=== PATIENT | female | born 1960 | race Hispanic/Latino ===

== ENCOUNTER 2016-04-01 17:50 | Emergency (ER) | payer SELFPAY ==
[2016-04-01 17:57] VITALS: BP 121/73; PULSE 102; RESP 16; O2SAT 98
--- NOTE | 2016-04-01 18:36 | ED.REPORT ---
HPI-General Illness Date of Service Apr 01, 2016 ED Provider: Mega Veliz DO 56-year-old female past medical history of diabetes, chronic right foot pain secondary to work injury 2 years ago and headaches presents to ED via POV, patient is reportedly dropped off and left in the ED waiting room. Patient is [place]-speaking only possibly different dialect as promotions associate services have had trouble communicating with patient. Through promotions associate patient's main complaint today is a head pain and ringing in her ears. This is accompanied with a whooshing sound in both ears which coincides with her heartbeat, patient denies dizziness or a sensation that the room is spinning denies nausea vomiting , diarrhea GI or , CP, SOB, abdominal pain. Does endorse fever and chills and generalized malaise. Nursing Notes Stated Complaint: R FOOT Chief Complaint: Extremity Trauma Nursing Notes Reviewed: Yes Allergies: Coded Allergies: No Known Allergies (Unverified , 04/01/16) Scheduled Amoxicillin/Clav K 875-125 mg (Augmentin 875-125 mg) 1 Each Tablet 1 TABLET PO BID Oseltamivir Phosphate (Tamiflu) 75 Mg Capsule 75 MG PO BID General Time Seen by MD: 18:19 Chief Complaint Headache Hx Obtained From: Patient, Daughter Arrived By: Walk-in Review of Systems Full Review of Systems Constitutional: Reports: Chills, Fever Eyes: Denies: Blurred bilateral, Diplopia, Photophobia, Redness bilateral, Visual loss bilateral Ears / Nose / Throat: Reports: Ear ringing bilateral, Hearing loss bilateral, Denies: Ear drainage bilateral, Mouth pain, Nasal congestion, Nose bleeding, Sinus problem, Sore throat Respiratory: Denies: Hemoptysis, Non-productive cough, Pleuritic pain, Shortness of breath, Wheezing Cardiovascular: Denies: Chest pain GI: Reports: Abdominal pain, Denies: Constipation, Diarrhea, Nausea, Vomiting Musculoskeletal: Denies: Back pain Hematologic: Denies Bleeding Neurologic: Reports: Headache, Denies: Abnormal movement, Bladder dysfunction, Bowel dysfunction, Change LOC , Confusion, Dizziness, Focal weakness, Lightheaded, Numbness, Spinning sensation, Vision change, Weakness Physical Exam General: Mild distress, well-developed, well-nourished, appropriately interactive HEENT: Normocephalic, atraumatic. External ears without defect. Tympanic membranes visualized, mild erythema internal auditory meatus right side. Pupils equal, round, and reactive to light and accommodation. Anicteric sclerae slight injection bilaterally, moist conjunctivae, and no lid lag. Oropharynx free of erythema and cobble stoning with moist mucosa. Neck: Supple with full range of motion. No jugular venous distension. No bruits. No lymphadenopathy or thyromegaly. (Reevaluation of patient showed neck tenderness to flexion) Cardiovascular: Regular rate and rhythm with no murmurs, rubs, or gallops appreciated Pulmonary: Clear to auscultation bilaterally with no crackles, wheezes, or rhonchi. Normal respiratory effort with no use of accessory muscles. Abdomen: Bowel tones present. Soft, mild tenderness to palpation left and right lower quadrants, nondistended. No hepatosplenomegaly or masses appreciated. Extremities: No clubbing, cyanosis, edema, or lymphadenopathy appreciated, right foot in walking boot. Upon removal area is warm and painful to palpation no obvious infectious source. Skin: Normal temperature, turgor, and texture; no rash, ulcers, or subcutaneous nodules appreciated. Neurological: Cranial nerves grossly intact. Normal muscle strength, tone, and bulk. Reflexes, coordination, and sensory function within normal limits. Antalgic gait walks with cane Psychiatric: Normal mood and affect. Alert and oriented to person, place, and time. Vital Signs Vital Signs Date Time Temp Pulse Resp B/P Pulse Ox O2 Delivery O2 Flow Rate FiO2 04/02/16 01:54 37.4 98 18 96 04/01/16 21:33 38.6 102 16 121/73 98 108/68 04/01/16 17:57 38.6 102 16 121/73 98 Initial VS: Reviewed Interpretation & Diagnostics CT BRAIN WITHOUT CONTRAST IMPRESSION: 1. No acute intracranial disease process. 2. Mucosal thickening involving the left sphenoid sinus and posterior left ethmoid air cells with diffuse osseous wall thickening. Findings most compatible with severe chronic sinusitis. Please correlate with clinical data. Dictated by: Olivia Oliveira MD, PhD on 04/01/2016 at 20:15 X-RAY CHEST ONE VIEW, PORTABLE IMPRESSION: No acute cardiopulmonary disease process. Dictated by: Olivia Oliveira MD, PhD on 04/01/2016 at 20:53 Lab Results Interpretation Result Diagram: 04/01/169 04/01/161928 Test 04/01/16 19:29 04/01/16 20:25 04/01/16 22:55 White Blood Count 4.6th/mm3 (3.8-10.1) Red Blood Count 4.10mil/mm3 (3.90-5.20) Hemoglobin 12.2g/dL (12.0-15.6) Hematocrit 35.8% (35.0-46.0) Mean Corpuscular Volume 87.3fL (81-100) Mean Corpuscular Hemoglobin 29.8pg (27.0-35.0) Mean Corpuscular Hemoglobin Concent 34.1% (32.0-37.0) Red Cell Distribution Width 13.1% (12.3-15.4) Platelet Count 156bil/L (150-400) Neutrophils (%) (Auto) 73.4% (40-74) Lymphocytes (%) (Auto) 19.2% (14-46) Monocytes (%) (Auto) 6.8% (4-12) Eosinophils (%) (Auto) 0.4% (0-5) Basophils (%) (Auto) 0% (0-3) Sodium Level 137mEq/L (134-144) Potassium Level 3.5mEq/L (3.5-5.2) Chloride Level 99mEq/L (97-108) Carbon Dioxide Level 26mmol/L (18-29) Blood Urea Nitrogen 10mg/dL (6-24) Creatinine 0.43mg/dL (0.57-1.00) Estimat Glomerular Filtration Rate 218mL/min (>59) Glucose Level 163mg/dL (60-99) Calcium Level 8.8mg/dL (8.5-10.1) Magnesium Level 1.9mg/dL (1.6-2.6) Total Bilirubin 0.2mg/dL (0.0-1.2) Aspartate Amino Transf (AST/SGOT) 20U/L (0-50) Alanine Aminotransferase (ALT/SGPT) 11U/L (0-32) Alkaline Phosphatase 79U/L (25-150) Total Protein 7.1g/dL (6.4-8.4) Albumin 3.8g/dL (3.4-5.0) Lipase 24U/L (13-60) Hold Lowery Top Tube Received (Received) Urine Color Yellow (YELLOW) Urine Appearance Clear (CLEAR,HAZY) Urine pH 7.5 (5.0-8.0) Urine Specific Hamel 1.015 (1.003-1.035) Urine Protein Negativemg/dL (NEG,TRACE) Urine Glucose (UA) 500mg/dL (NEGATIVE) Urine Ketones Negativemg/dL (NEGATIVE) Urine Occult Blood Moderate (NEGATIVE) Urine Nitrite Negative (NEGATIVE) Urine Bilirubin Negative (NEGATIVE) Urine Urobilinogen Normalmg/dL (NORMAL) Urine Leukocyte Esterase Trace (NEGATIVE) Urine RBC 3-10/hpf (0-2) Urine WBC 6-10/hpf (0-5) Urine Epithelial Cells Moderate/hpf (NONE-MOD) Urine Crystals Amorphous phosphates Urine Bacteria Few/hpf (NONE-FEW) Urine Hyaline Casts None/lpf (NONE) Urine Granular Casts None seen (NONE SEEN) Urine Waxy Casts None seen (NONE SEEN) Urine Red Blood Cell Casts None seen (NONE SEEN) Urine White Blood Cell Casts None seen (NONE SEEN) Urine Mucus None seen (None Seen) Urine Trichomonas None seen (NONE SEEN) Urine Yeast None (NONE SEEN) Urinalysis Comment None Urine Culture Reflexed Indicated CSF Appearance Clear (CLEAR) CSF Color Colorless (COLORLESS) CSF WBC 8/mm3 (0-5) CSF RBC 45/mm3 CSF Mononuclear WBCs 100% CSF Polynuclear WBCs 0% CSF Other Cells 0 CSF Glucose 104mg/dL (45-90) CSF Total Protein 31mg/dL (15-45) Procedures Lumbar Puncture Procedure Performed by: ED physician, ED resident Consent / Setup / Site Prep: Consent from spouse Skin Preparation Agent: Betadine Local Anesthesia: Lidocaine 1% Inserted Needle at: L3 L4 Post-Procedure / Complications: Dressing applied, No complications, Tolerated procedure well Re-Eval/Medical Decision Med Decision/Clinical Course CBC CMP unremarkable. Temperature 38.6, pulse rate 102 blood pressure 121/73 respirations 16 at 98% Urine showed 6-10 white blood cells trace leukocyte esterase. No CVA tenderness , mild abdominal pain. Patient is a diabetic with a high blood glucose as well as glucosuria, no additional antibiotics prescribed based on recent recommendations. On reevaluation of patient she did endorse neck tenderness specifically to flexion. LP performed which showed 8 WBCs (reference 0-5) and CSF glucose of 104 (reference 45-90). As patient had a positive flu swab there was concern for viral meningitis. Patient given Tamiflu in ED as well as prescription. CT noncontrast showed chronic sinusitis, chest x-ray showed no cardiopulmonary disease. Patient discharged to home with pain medication, Tamiflu and Augmentin with strict instructions on when and why to return to emergency department. , Discharge & Departure Shift Change Sign-Out Response to Therapy: Improved Primary Impression: Sinusitis chronic, ethmoidal Additional Impressions: Sinusitis chronic, sphenoidal Flu Disposition: Home Discharge Condition All VS Reviewed: Yes Condition: Stable Additional Instructions: The head pain and other symptoms you are experiencing are most likely due to a chronic infection in your sinuses. This was seen on CT imaging of your head. Your flu test came back positive and there was some concern that this flu virus may have caused a condition called meningitis. The lumbar puncture done in the emergency room final results are still pending though we have have given you a medication called Tamiflu for this. We will be giving you a prescription to fill as well. I am giving you a prescription for an antibiotic called Augmentin. Please take this medication as prescribed. 1 tablet every 12 hours for the next 7 days. Please follow up with your primary care provider regarding today's emergency department visit. If you develop any worsening of your symptoms, significant fever greater than 102F, chest pain, significant shortness of breath, nausea/vomiting or visual disturbances please return to the emergency department for additional evaluation. Translation used with [employer] translate Referrals: NOPCP (PCP) Attending Statement I personally took a history and physical examination. I was present during the lumbar puncture. The lumbar puncture went very well. Meningitis ruled out. Influenza A is consistent with all of her symptoms. She also has sinusitis that is rather impressive on CT. She will be placed on Tamiflu, Augmentin as well as symptomatic treatment. Recommend close outpatient follow-up. CHRISTIANO WRIGHT DO Apr 01, 2016 18:36 Mega Veliz DO Apr 02, 2016 17:42
[2016-04-01 20:07] LABS: BASOPHILS % (AUTO) 0 % (0-3); EOSINOPHILS % (AUTO) 0.4 % (0-5); MONOCYTES % (AUTO) 6.8 % (4-12); Mean Corpuscular Hemoglobin 29.8 pg (27.0-35.0); Mean Corpuscular Volume 87.3 fL (81-100); NEUTROPHILS % (AUTO) 73.4 % (40-74); Platelet Count 156 bil/L (150-400)
[2016-04-01 20:10] LABS: Magnesium 1.9 mg/dL (1.6-2.6)
--- NOTE | 2016-04-01 20:17 | DRSVH ---
PROCEDURE: CT BRAIN WITHOUT CONTRAST ([id number]) INDICATIONS: DINH TECHNIQUE: Noncontrast 4.5 mm thick angled axial sections acquired from the foramen magnum to the vertex, with c oronal reformats. COMPARISON: None. FINDINGS: Image quality: Excellent. CSF spaces: Basal cisterns are patent. No extra-axial fluid collections. Ventricles are normal in size and shape. Brain: No midline shift. No intracranial masses or hemorrhage. Levi-white matter interface is norm al. Skull and face: Calvarium and visualized facial bones are intact, without suspicious lesions. Sinuses: Mucosal thickening causing complete opacification of the left sphenoid sinus is noted. Opa cification of posterior left ethmoid air cells noted. There is diffuse osseous thickening involving the left sphenoid sinus wall. D. mastoids are clear. IMPRESSION: 1. No acute intracranial disease process. 2. Mucosal thickening involving the left sphenoid sinus and posterior left ethmoid air cells with di ffuse osseous wall thickening. Findings most compatible with severe chronic sinusitis. Please corre late with clinical data. Dictated by: Olivia Oliveira MD, PhD on 04/01/2016 at 20:15 Approved by: Olivia Oliveira MD, PhD on 04/01/2016 at 20:15
[2016-04-01] MEDS ORDERED: Amoxicillin-Clav 875-125 mg Tablet PO ONE (20:35)
[2016-04-01] MEDS ORDERED: AMOX-366 PO (20:36)
[2016-04-01 20:46] LABS: APPEARANCE,URINE CLEAR (CLEAR,HAZY); COLOR,URINE YELLOW (YELLOW); OCCULT BLOOD,URINE MODERATE (NEGATIVE); PH,URINE 7.5 (5.0-8.0); UROBILINOGEN,URINE NORMAL (NORMAL)
--- NOTE | 2016-04-01 20:55 | DRSVH ---
PROCEDURE: X-RAY CHEST ONE VIEW, PORTABLE ([id number]) INDICATIONS: SHORTNESS OF BREATH TECHNIQUE: One view of the chest was acquired. COMPARISON: [facility], , CHEST 2VW, 10/02/2014, 17:46. FINDINGS: Surgical changes and devices: None. Lungs and pleura: No pleural effusions or pneumothorax. Lungs are clear. Mediastinum: Mediastinal contours appear normal. Heart size is normal. Bones and chest wall: No suspicious bony lesions. Overlying soft tissues appear unremarkable. IMPRESSION: No acute cardiopulmonary disease process. Dictated by: Olivia Oliveira MD, PhD on 04/01/2016 at 20:53 Approved by: Olivia Oliveira MD, PhD on 04/01/2016 at 20:53
[2016-04-01 21:33] VITALS: BP_SYST 108; BP_SYST 121; BP_DIAS 68; BP_DIAS 73; PULSE 102; RESP 16; O2SAT 98
[2016-04-01] MEDS ORDERED: HYDROcodone-APAP 5-325 mg Tablet PO ONE (22:35)
[2016-04-01] MEDS ORDERED: _HYDROcodone/APAP 5-325 mg Tablet PO PRN ×2 (22:35→23:20)
[2016-04-01] MEDS ORDERED: Ondansetron 8 mg ODT Tablet ONE (23:27)
[2016-04-01] MEDS ORDERED: Ondansetron 8 mg ODT Tablet PO ONE (23:40)
[2016-04-02] MEDS ORDERED: TAM75UDCAP PO (00:30)
[2016-04-02] MEDS ORDERED: AMOX-366 PO (00:31)
[2016-04-02 00:35] LABS: APPEARANCE,CSF CLEAR (CLEAR); COLOR,CSF COLORLESS (COLORLESS); WHITE BLOOD CELL,CSF 8 /mm3 (0-5)
[2016-04-02 01:54] VITALS: PULSE 98; RESP 18; O2SAT 96
== END 2016-04-02 01:58 | disposition home or self-care (01) ==
LOC: SED 18:00
DX: J32.2 Chronic ethmoidal sinusitis (principal); J32.3 Chronic sphenoidal sinusitis; J11.89 Influenza due to unidentified influenza virus with other manifestations; B97.89 Other viral agents as the cause of diseases classified elsewhere

== ENCOUNTER 2016-04-17 09:05 | Emergency (ER) | payer SELFPAY ==
[~2016-04-17] VITALS: Ht 129.5 cm; Wt 46.4 kg
[~2016-04-17 09:05] MED LIST: AMOX-366 PO; TAM75UDCAP PO
[2016-04-17 09:15] VITALS: BP 124/73; PULSE 61; RESP 14; O2SAT 99
--- NOTE | 2016-04-17 09:28 | ED.REPORT ---
HPI-Abd Pain F 40 and Over Date of Service Apr 17, 2016 ED Provider: Jhon Dougherty MD This is a 56-year-old indigenous Stateless woman who is accompanied by her . She reports many different symptoms and when I ask about one thing she commonly will respond with a complaint in a different body system. As best I can piece together, she has been sick for about 3 or 4 weeks. She says originally her main problem was right neck pain which has largely resolved. She says currently she experiences significant right-sided headache, mucus productive cough that is sometimes bloody she also endorses midepigastric and left lower quadrant pain intermittently. She endorses nausea but no vomiting. She says also that she is coughing quite a bit. She says that she is not sure whether she had a fever or not but she did have chills. She also points to her lower left back and says that she has pain there is sometimes. Her explains that she has chronic foot pain making it difficult to walk. She was seen and treated for influenza a on April 02. Her and are translating from [employer] into [place] therefore Afghan is not completely fluent making communication difficult. Nursing Notes Stated Complaint: GENERAL COMPLAINT Chief Complaint: Female Abdominal Pain Nursing Notes Reviewed: Yes Allergies: Coded Allergies: No Known Allergies (Unverified , 04/01/16) Scheduled Amoxicillin/Clav K 875-125 mg (Augmentin 875-125 mg) 1 Each Tablet 1 TABLET PO BID Oseltamivir Phosphate (Tamiflu) 75 Mg Capsule 75 MG PO BID Scheduled PRN Metoclopramide (Metoclopramide) 10 Mg Tablet 10 MG PO QID PRN PRN For Nausea General Time Seen by MD: 09:27 Chief Complaint Abdominal pain Hx Obtained From: Patient, Spouse Arrived By: Walk-in Sudden in Onset?: Yes Onset Occurred: More than a week ago... (2 weeks) Recent Healthcare: Recent doctor visit Past Medical History Past Medical History Non-specific foot injury that impedes walking Reports: Diabetes mellitus, Hypertension, Denies: Cancer Ambulatory Status Cane Review of Systems Constitutional: Reports: Chills Respiratory: Reports: Prod cough, bloody Cardiovascular: Reports: Chest pain GI: Reports: Abdominal pain, Nausea, Denies: Diarrhea, Vomiting Musculoskeletal: Reports: Back pain, Neck pain Complete sys rev & neg: except as marked. Ears / Nose / Throat: Reports: Earache right, Sore throat Neurologic: Reports: Dizziness, Headache, Lightheaded Physical Exam This woman appears well and is in no distress. She appears depressed and has a very flat affect. Her objective examination is entirely normal except for her antalgic gait which is attributed by her to her chronic foot problems and is not new. Vital Signs Vital Signs (First) Date Time Temp Pulse Resp B/P Pulse Ox O2 Delivery O2 Flow Rate FiO2 04/17/16 09:15 36.2 61 14 124/73 99 Room Air Initial VS: Reviewed Head / Eyes: Atraumatic, Normocephalic Skin: Warm, Dry Neurologic: Alert, Oriented, Nonfocal Psychiatric: Mood/affect normal, Behavior normal, Normal thought content General/Constitutional: Awake, Alert, Well developed Respiratory / Chest: Atraumatic, Breath sounds NL, Breath sounds = bilat, No respiratory distress Cardiovascular: Heart rate NL, Regular rhythm, Heart sounds NL, Peripheral circulation NL Abdomen: Soft, Non-tender Back: Inspection NL ENT: Airway patent, Mucous membranes moist, Pharynx NL, Tympanic membs NL Re-Eval/Medical Decision Re-Evaluation/Progress : Time of Eval: 10:00 )( Re-Eval Abdomen: Non-tender Re-Evaluation/Progress Note: Discussed plan for discharge and follow up. Patient understands and agrees with plan. All questions addressed at this time. Counseled Regarding: Diagnosis, Need for follow-up, When/why to return to ED Discharge & Departure Primary Impression: Headache Headache type: unspecified Headache chronicity pattern: unspecified pattern Intractability: not intractable Qualified Code: R51 - Headache Additional Impressions: Earache Laterality: right Qualified Code: H92.01 - Otalgia, right ear Cough Disposition: Home Discharge Condition All VS Reviewed: Yes Condition: Stable Additional Instructions: I think that your symptoms are probably related to your recent flu infection. I see no evidence of a dangerous infection or medical condition currently. I recommend that you drink a lot of water, get plenty of rest and use Tylenol 1000 mg every 6 hours as needed for pain or headache. For the nausea and uncomfortable feeling in her stomach, I recommended metoclopramide. Call the clinic Tuesday for a follow-up appointment later in the week. [employer] Creo que shaniqua sntomas probablemente estn relacionados con carmichael reciente infecci n por la gripe. No veo ninguna evidencia de miroslava infeccin o condicin mdica peligrosa actualmente. Recomiendo que van lakesha agua, descanse y use Tylenol 1000 mg cada 6 horas segn sea necesario para el dolor o dolor de michelle. Para la nusea y la sensacin incmoda en carmichael estmago, recomend metoclopramide. Llame a la clnica el lunes para miroslava kelley de seguimiento ms adelante en la semana. Referrals: Kayla Hansen MD [facility] Scribe Attestation Portions of this note were transcribed by Tess Rivera. I, Dr. Dougherty personally performed the history, physical exam and medical decision-making; I reviewed and confirmed the accuracy of the information in the transcribed note. Signed by: Tess Rivera 04/17/16, 1027 copies to: Kayla Hansen MD; [facility] Jhon Dougherty MD Apr 17, 2016 09:28 TESS RIVERA Apr 17, 2016 09:49
[2016-04-17] MEDS ORDERED: METO10TA3 PO (10:11)
[2016-04-17 10:23] VITALS: BP 124/73; PULSE 61; RESP 14; O2SAT 99
== END 2016-04-17 10:23 | disposition home or self-care (01) ==
LOC: SED 09:05
DX: R51 Headache (principal); H92.01 Otalgia, right ear; I10 Essential (primary) hypertension; E11.9 Type 2 diabetes mellitus without complications